=== PATIENT | female | born 1985 | race Caucasian/White ===

== ENCOUNTER 2016-02-14 17:43 | Emergency (ER) | payer MEDICAID ==
[2016-02-14 17:51] VITALS: RESP 18; TEMP 97.9
[2016-02-14] MEDS ORDERED: NS 1,000 ML IV ONE (19:06)
--- NOTE | 2016-02-14 19:06 | EDPHY ---
H & P Stated Complaint: 18 wks preg;cramping low abd x 2 days;no spotting HPI/ROS: HPI CHIEF COMPLAINT: Pelvic cramping HISTORY OF PRESENT ILLNESS: This patient is a 31-year-old female, denies any significant medical history or surgical history she presents to the emergency room with lower pelvic cramping x2 days. No vaginal bleeding, no vaginal discharge, no back pain, no urinary symptoms. She tells me that the pain is going on progressively for 2 days. Denies any vomiting fever back pain. She states she has low pelvic cramping it waxes and waning she is not tender in her right lower quadrant. She denies fever, denies urinary symptoms. She tells me she is 18 weeks . She has had cramping in her pelvis on and off for months. this is her 4th she has 3 living children. Past Medical History: Denies significant medical history Past Surgical History: denies significant surgical history Social History: denies drugs, alcohol, tobacco products Family History: noncontributory ROS REVIEW OF SYSTEMS: A comprehensive 10 point review of systems is otherwise negative aside from elements mentioned in the history of present illness. Exam Constitutional triage nursing summary reviewed, vital signs reviewed, awake/ alert. Eyes normal conjunctivae and sclera, EOMI, PERRLA. HENT normal inspection, atraumatic, moist mucus membranes, no epistaxis, neck supple/ no meningismus, no raccoon eyes. Respiratory clear to auscultation bilaterally, normal breath sounds, no respiratory distress, no wheezing. Cardiovascular rate normal, regular rhythm, no murmur, no edema, distal pulses normal. Gastrointestinal soft, non-tender, no rebound, no guarding, normal bowel sounds, no distension, no pulsatile mass. Genitourinary no CVA tenderness. Musculoskeletal no midline vertebral tenderness, full range of motion, no calf swelling, no tenderness of extremities, no meningismus, good pulses, neurovascularly intact. Skin pink, warm, & dry, no rash, skin atraumatic. Neurologic awake, alert and oriented x 3, AAOx3, moves all 4 extremities equally, motor intact, sensory intact, CN II-XII intact, normal cerebellar, normal vision, normal speech. Psychiatric normal mood/affect. Heme/Lymph/Immune no lymphadenopathy. Differential Diagnosis: includes but is not limited to in a particular order, cramping in , urinary tract infection, electrolyte abnormality, dehydration, ectopic , placental abruption Medical Decision Making: this patient had an ultrasound in a of her pelvis, she has no right lower quadrant pain doubt this is acute appendicitis, her cramp is consistent with previous episodes of cramping during her which have been multiple. Will check blood work, urinalysis, electrolytes she will be hydrated with IV fluids. Re-evaluation: Ultrasound of the Pelvis. The results of the study are normal appearing fetus, normal heart rate, there is a choroid plexus cyst solid in nature that will need follow-up. This has been relayed to the patient I discussed the results of this study with the radiologist Dr. Mcclain [id number]: Re-examination at this time patient is resting comfortably no ongoing abdominal pain specifically in over right lower quadrant pain. Urinalysis blood work reviewed no significant high white blood cell count or any focal pain in the right lower quadrant causing pain. Ultrasound has been reviewed with her she understands this cyst on her cord plexus need follow-up. Normal IUP. No free fluid in the pelvis. Patient is comfortable being discharged home. I did give her strict return precautions understands return emergency room if she develops any worsening symptoms includes abdominal pain, fever, vomiting Source: Patient - Personal History LMP (Females 10-55): EDC: 07/14/16 Current Tetanus Diphtheria and Acellular Pertussis (TDAP): Yes - Medical/Surgical History Hx Asthma: No Hx Chronic Respiratory Disease: No Hx Diabetes: No Hx Cardiac Disease: No Hx Renal Disease: No Hx Cirrhosis: No Hx Alcoholism: No Hx HIV/AIDS: No Hx Splenectomy or Spleen Trauma: No Other PMH: herpes, hpv, depression, ocd/paranoia. - Social History Smoking Status: Never smoked Constitutional: Initial Vital Signs Temperature (C) 36.6 C 02/14/16 17:45 Heart Rate 74 02/14/16 17:45 Respiratory Rate 18 02/14/16 17:45 Blood Pressure 107/78 02/14/16 17:45 O2 Sat (%) 97 02/14/16 17:45 O2 Delivery Mode Room Air Allergies/Adverse Reactions: ginseng Allergy (Verified 02/14/16 17:48) chlorine Allergy (Uncoded 12/15/15 21:37) medicine to stop contractions Allergy (Uncoded 12/15/15 21:37) vitamin B12 Allergy (Uncoded 12/15/15 21:37) Home Medications: Medication Instructions Recorded Vit27&Calcium/Iron/FA 1 each PO 02/14/16 [] Medical Decision Making - Data Points Laboratory Results: Laboratory Results 02/14/16 19:25 02/14/16 19:25 02/14/16 02/14/16 19:25 18:40 WBC 7.99 10^3/uL (3.80-9.50) RBC 4.45 10^6/uL (4.18-5.33) Hgb 13.6 g/dL (12.6-16.3) Hct 39.1 % (38.0-47.0) MCV 87.9 fL (81.5-99.8) MCH 30.6 pg (27.9-34.1) MCHC 34.8 g/dL (32.4-36.7) RDW 14.1 % (11.5-15.2) Plt Count 299 10^3/uL (150-400) MPV 9.6 fL (8.7-11.7) Neut % (Auto) 67.8 % (39.3-74.2) Lymph % (Auto) 22.3 % (15.0-45.0) [place] % (Auto) 7.6 % (4.5-13.0) Eos % (Auto) 1.3 % (0.6-7.6) Baso % (Auto) 0.4 % (0.3-1.7) Nucleat RBC Rel Count 0.0 % (0.0-0.2) Absolute Neuts (auto) 5.42 10^3/uL (1.70-6.50) Absolute Lymphs (auto) 1.78 10^3/uL (1.00-3.00) Absolute Monos (auto) 0.61 10^3/uL (0.30-0.80) Absolute Eos (auto) 0.10 10^3/uL (0.03-0.40) Absolute Basos (auto) 0.03 10^3/uL (0.02-0.10) Absolute Nucleated RBC 0.00 10^3/uL (0-0.01) Immature Gran % 0.6 % (0.0-1.1) Immature Gran # 0.05 10^3/uL (0.00-0.10) Sodium 137 mEq/L (134-144) Potassium 3.6 mEq/L (3.5-5.2) Chloride 102 mEq/L (97-110) Carbon Dioxide 22 mEq/l (22-31) Anion Gap 13 mEq/L (8-16) BUN 5 L mg/dL (7-23) Creatinine 0.5 L mg/dL (0.6-1.0) Estimated GFR > 60 Glucose 78 mg/dL (70-100) Calcium 9.3 mg/dL (8.5-10.4) Total Bilirubin 0.5 mg/dL (0.1-1.4) Conjugated Bilirubin 0.5 mg/dL (0.0-0.5) Unconjugated Bilirubin 0.0 mg/dL (0.0-1.1) AST 22 IU/L (14-46) ALT 34 IU/L (9-52) Alkaline Phosphatase 116 IU/L (38-126) Total Protein 7.3 g/dL (6.3-8.2) Albumin 3.9 g/dL (3.5-5.0) Lipase 300.0 IU/L (23-300) Urine Color YELLOW Urine Appearance CLEAR Urine pH 6.0 (5.0-7.5) Ur Specific [place] 1.013 (1.002-1.030) Urine Protein NEGATIVE (NEGATIVE) Urine Ketones NEGATIVE (NEGATIVE) Urine Blood NEGATIVE (NEGATIVE) Urine Nitrate NEGATIVE (NEGATIVE) Urine Bilirubin NEGATIVE (NEGATIVE) Urine Urobilinogen NEGATIVE EU (0.2-1.0) Ur Leukocyte Esterase NEGATIVE (NEGATIVE) Ur Culture Indicated? NOT INDICATED (NI) Urine Glucose NEGATIVE (NEGATIVE) Medications Given: Discontinued Medications Sodium Chloride (Ns) 1,000 mls @ 0 mls/hr IV ONCE ONE PRN Reason: Wide Open Stop: 02/14/16 19:07 Last Admin: 02/14/16 19:29 Dose: 1,000 mls Departure - Departure Disposition: Home, Routine, Self-Care Clinical Impression: Pelvic cramping Condition: Good Instructions: (ED) Additional Instructions: 1. please return to the emergency room if he develops any worsening symptoms includes abdominal pain, fever, vomiting or questions or concerns. 2. Please follow up with your ultrasound results with her OBGYN.
[2016-02-14 19:36] LABS: % IMMATURE GRANULYOCYTES 0.6 % (0.0-1.1); ABSOLUTE IMMATURE GRANULOCYTES 0.05 10^3/uL (0.00-0.10); ADD DIFF? NO; ADD MORPH? NO; ADD SCAN? NO; ATYPICAL LYMPHOCYTE FLAG 10 (0-99); FRAGMENT RBC FLAG 0 (0-99); HEMATOCRIT 39.1 % (38.0-47.0); HEMOGLOBIN 13.6 g/dL (12.6-16.3); LEFT SHIFT FLG 0 (0-99); LIPEMIA HEMOLYSIS FLAG 90 (0-99); MEAN CELL HEMOGLOBIN 30.6 pg (27.9-34.1); MEAN CELL HEMOGLOBIN CONCENTR. 34.8 g/dL (32.4-36.7); MEAN CELL VOLUME 87.9 fL (81.5-99.8); MEAN PLATELET VOLUME 9.6 fL (8.7-11.7); PLATELET CLUMPS FLAG 0 (0-99); PLATELET COUNT 299 10^3/uL (150-400); RED BLOOD CELL COUNT 4.45 10^6/uL (4.18-5.33); RED CELL DISTRIBUTION WIDTH 14.1 % (11.5-15.2)
[2016-02-14 19:38] LABS: COLOR YELLOW; LEUKOCYTE ESTERASE,URINE NEGATIVE (NEGATIVE); NITRITE,URINE NEGATIVE (NEGATIVE)
[2016-02-14 19:51] LABS: ALANINE AMINOTRANSFERASE 34 IU/L (9-52); ALBUMIN 3.9 g/dL (3.5-5.0); ALKALINE PHOSPHATASE 116 IU/L (38-126); ANION GAP 13 mEq/L (8-16); ASPARTATE AMINOTRANSFERASE 22 IU/L (14-46); BILIRUBIN,TOTAL 0.5 mg/dL (0.1-1.4); BILIRUBIN-CONJUGATED 0.5 mg/dL (0.0-0.5); CALCIUM 9.3 mg/dL (8.5-10.4); CARBON DIOXIDE 22 mEq/l (22-31); CHLORIDE 102 mEq/L (97-110); CREATININE 0.5 mg/dL (0.6-1.0); GLOMERULAR FILTRATION RATE > 60; GLUCOSE 78 mg/dL (70-100); POTASSIUM 3.6 mEq/L (3.5-5.2); SODIUM 137 mEq/L (134-144); TOTAL PROTEIN 7.3 g/dL (6.3-8.2)
--- NOTE | 2016-02-14 21:22 | US ---
Complete Obstetric Ultrasound - February 14, 2016 Indication: Pelvic pain. The estimated gestational age by LMP is 18 weeks and 3 days, yielding an EDC of July 14, 2016. Comparison: First symmetric obstetrical ultrasound of December 15, 2015. Findings: Number: 1 Presentation: Vertex Placental location: Posterior. No previa or retroplacental fluid collection. Placenta cord insertion: Central Cervix: 3.7 cm, visualized transabdominally Maximum vertical pocket: 4.9 cm. Amniotic fluid index: 15.6 cm heart rate: 147 bpm Ovaries: Not visualized. No free fluid or adnexal mass. Biometry: Biparietal diameter: 42 mm = 18 weeks, 6 days Head circumference: 152 mm = 18 weeks, 2 days Abdominal circumference: 127 mm = 18 weeks, 2 days Femur length: 28 mm = 18 weeks, 4 days Humerus length: 28 mm = 18 weeks, 6 days Transcerebellar diameter: 19 mm = 18 weeks, 5 days HC/AC: 1.20 (1.07 - 1.29) FL/BPD: 66% FL/AC: 22% Average ultrasound age: 18 weeks, 4 days EDC based on today's average ultrasound age: July 13, 2016 Estimated weight is 238 grams +/- 35 grams. The estimated weight is at the 43rd percentil e based on previous dating. Anatomy Survey: Supratentorial brain: Bilateral choroid plexus cysts. Otherwise normal anatomy. Posterior fossa: Normal Spine: Suboptimal Nose and lips: Normal Facial profile: Normal Heart: Four-chamber heart. Suboptimal visualization. Cardiac outflow tracts: Not visualized. Stomach: Normal Umbilical cord insertion: Normal Kidneys: Normal, no pyelectasis Bladder: Normal Number of cord vessels: Three Upper extremities: Present Lower extremities: Present Impression: 1. Living chou in vertex presentation. Size is concordant with dates. The estimated ge stational age by biometry is 18 weeks and 4 days, yielding an EDC of July 13, 2016. The estimate d gestational age by LMP is 18 weeks and 3 days. 2. Posterior placenta. No previa or evidence of abruption. 3. Normal amniotic fluid volume. 4. Bilateral choroid plexus cysts may be an isolated benign finding, however, consultation with the [facility] is recommended. 5. Limited normal anatomic survey. Comment: Results and recommendations were discussed with Dr. Kulwant Olson at 8:33 p.m. on February 14, 2016.
[2016-02-14 22:24] VITALS: BP 124/68; PULSE 85; O2SAT 99
== END 2016-02-14 22:24 | disposition home or self-care (01) ==
DX: O26.892 Other specified pregnancy related conditions, second trimester (principal); R10.2 Pelvic and perineal pain; Z3A.18 18 weeks gestation of pregnancy

== ENCOUNTER → 2016-03-12 | Outpatient (CLI) | payer MEDICAID ==
--- NOTE | 2016-03-12 11:31 | US ---
March 12, [address] Beasley, Thank you for requesting consultation and a ultrasound to evaluate anatomy for your patient, Ms. Marie. As you know, David is a 31 year old G 4, P 3003 with a chou pregna ncy dating 22 w 2 d; JAVY of 07/14/16 by 9 week ultrasound. Aneuploidy screening was performed. She had a reassuring Quad screen. Her anatomy ultrasound for this revealed choroid plexus cyst s. She is here with her advocate today. She has had three successful term vaginal deliveries. ULTRASOUND Number of fetuses: 1 Placental location: Anterior; no evidence of previa Placental cord insertion: Intraplacental presentation: Cephalic Cervix: 4.3 cm viewed transabdominally Maximum Vertical Pocket: 5.3 cm The adnexa were evaluated. No pathology was seen. Right ovary is visualized and seen as normal. It measures 1.6 x 1.2 x 1.9 cm. Left ovary is visualized and seen as normal. It measures 1.6 x 1.1 x 1.8 cm. MEASUREMENTS: Biparietal diameter: 52 mm 21 weeks, 5 days Head circumference: 197 mm 22 weeks, 0 days Abdominal circumference: 180 mm 23 weeks, 0 days Femur length: 40 mm 23 weeks, 1 days Humerus length: 37 mm 23 weeks, 0 days Transcerebellar diameter: 23 mm 21 weeks, 4 days Average ultrasound age: 22 weeks, 4 days Estimated weight: 535 gm weight percentile: 70% ANATOMY Supratentorial brain: Normal including views of the falx, cavum septum pellucidum and choroids Lateral Ventricle: Normal, measuring 7.7 mm Posterior fossa: Normal including the cerebellum and cisterna magna Spine: Normal Nuchal fold: 5.1 mm normal Face: Normal views of the lip and nose area Profile: Normal Palate: Normal appearance of the alveolar ridge Heart: Four Chamber View: Normal including the intraventricular Septum LVOT: Normal RVOT: Normal 3VV: Normal Tracheal View: Normal Aortic Arch: Seen Ductal Arch: Seen SVC/IVC: Seen Heart Rate 147 bpm Diaphragm: Normal appearance without overt abnormality detected Stomach: Normal Umbilical cord insertion: Normal Right kidney: Normal Left kidney: Normal Bladder: Normal Number of cord vessels: Three Upper extremities: Normal Lower extremities: Normal Gender: Female IMPRESSION: 1. Intrauterine at 22 w 2 d, ultrasound is consistent with her established JAVY of 07/14/16 . 2. Normal anatomical survey. Resolution of previously seen choroid plexus cysts. 3. Cervical length is normal at 4.3 cm without evidence of insufficiency. RECOMMENDATIONS: I was pleased to review today's ultrasound with your patient, David. I reassured her that the baby is growing appropriately with normal amniotic fluid volume. Our detailed review of the anatomy did not reveal any overt abnormalities. We discussed the relevance of CPCs on ultrasound, spe cifically if other abnormalities were noted or her aneuploidy screening were concerning for Trisomy 1 8. In isolation, they are a variant and very unlikely related to aneuploidy. She is aware that she could choose to pursue definitive genetic diagnosis by amniocentesis. After our conversation, she wa s happy with the information she received and declined further testing. Future ultrasound and consultation is left to your clinical discretion. Thank you for allowing us the opportunity to evaluate your patient. Should you have any further ques tions or concerns please do not hesitate to contact me. Approximately 30 minutes were spent with the patient and 20 minutes were spent in face to face consu ltation. Oneida Pollock MD [employer] Maternal Medicine Diagnosis Department of Obstetrics & Gynecology [facility]
--- NOTE | 2016-03-12 15:20 | US ---
Obstetrical Sonogram Detail Clinical Indications: Advanced maternal age. Follow-up choroid plexus cysts; evaluate growth and dev elopment. Comparison to the prior study February 12, 2016. Technique: Longitudinal and transverse images are obtained. Dr. Pollock was present for the examination . Color Doppler evaluation is employed for assessment of vascularity. Findings: A single fetus is present in vertex presentation. Maternal cervical length is estimated at 4.3 cm. T he amount of amniotic fluid is normal with an MVP of 5.3 cm. The placenta is located anterior with no placenta previa. A three-vessel cord is documented with a central insertion on the placenta. motion is identified. cardiac activity is documented with a heart rate estimated at 147 beats per minute. A four-chamber heart view as well as out flow tract views are obtained. stoma ch, kidneys and bladder are normal. supratentorial brain, posterior fossa and neural axis appea rs normal. There has been interval resolution of the previously seen choroid plexus cysts. No a bnormality is identified. Maternal ovaries are visualized and appear normal. biometry: Biparietal diameter = 52 mm = 21 weeks 5 days Head circumference = 197 mm = 22 weeks 0 days Abdominal circumference = 180 mm = 23 weeks 0 days Femur length = 40 mm = 23 weeks 1 day Estimated weight 535 +/- 78 grams. This is at the 70th percentile based on last menstrual perio d. The estimated delivery date by ultrasound is July 12, 2016. This compares to the clinical date of July 14, 2016. Impression: 1. Single live intrauterine gestation with estimated age by ultrasound of 22 weeks 4 days with an est imated delivery date of July 12, 2016 by ultrasound.. 2. Appropriate interval development with resolution of previously seen choroid plexus cysts. Please see Dr. Pollock's report for findings and recommendations.
== END ==
LOC: FIMAGING 09:44
PROVIDERS: ATTEND Family Medicine
DX: Z36 Encounter for antenatal screening of mother (principal); Z3A.22 22 weeks gestation of pregnancy

== ENCOUNTER 2016-06-24 21:55 | Observation (INO) | payer MEDICAID ==
--- NOTE | 2016-06-24 23:42 | OBPROG ---
OBG Progress Note Assessment/Plan: Assessment: at 37w2d, no e/o ROM based on no e/o leakage of fluid, neg nitrazine, normal DVP Hemodynamically stable status reassuring Not in labor GBS pos Plan: Discharge home with strict precautions to return if notices further LOF Follow-up as scheduled for routine visit on Saturday. 06/24/16 23:45 06/24/16 23:47 Subjective: Patient is a healthy 31 yo at 37w2d by her stated JAVY, [facility] [place], here for r/o ROM. She states she had some diarrhea yesterday with nausea, improved but then occurred again today. Then after having diarrhea she had to urinate quite a few times in a row, and it alternated between clear and yellow urine, so she was unsure if it was amniotic fluid. She denies leaking at this time. No VB. No ctx. Active baby. Was 2 cm in the office 2 weeks ago. Next visit on Saturday. Also having some increased fatigue and headaches. Preg c/b GBS positive, anemia (Hct = 31), learning disability (IQ = 65) on disability, h/o depression, HSV on acyclovir All labs reviewed, notable for Rh neg, she states she has received Rhogam Objective: BP 121/65, pulse = 85, temp = 36.8 Gen: NAD Resp: unlabored CV: RRR Abd: gravid, soft, nontender, c/w stated dates Ext: no edema No moistness in pad or on perineum, including with cough Nitrazine negative SVE (done by Padma PASCUAL) 2/50/high, no leakage of fluid Sneads: few contractions, palpate mild, not felt by patient Bedside TAUS: Vertex fetus. Normal fluid with DVP = 6.6 cm FHR (bpm): 120 FHR Pattern Variability: Moderate FHR Category: 1 Membranes: Intact ICD10 Worksheet Patient Problems: Problems Problem Status Onset Acute - ICD10 Problem Qualifiers (1) Qualifiers: Weeks of gestation: 37 weeks Qualified Code(s): Z3A.37 - 37 weeks gestation of
== END 2016-06-24 23:38 | disposition home or self-care (01) ==
LOC: FLD 21:55
PROVIDERS: ADMIT Obstetrics & Gynecology; ATTEND Obstetrics & Gynecology
DX: Z03.79 Encounter for other suspected maternal and fetal conditions ruled out (principal); Z3A.37 37 weeks gestation of pregnancy

== ENCOUNTER 2016-07-06 05:15 | Inpatient (IN) | payer MEDICAID ==
[2016-07-06] MEDS ORDERED: TERBUTALINE SULFATE 1 MG/ML VIAL IV PRN (05:53)
[2016-07-06] MEDS ORDERED: AMPICILLIN SODIUM 2 GM in NS 100 ML IV ONE (05:53)
[2016-07-06] MEDS ORDERED: OXYTOCIN/RINGERS LACTATE 1,000 ML IV PRN (05:53)
[2016-07-06] MEDS ORDERED: EPSOM SALT 454 GM TP PRN (05:53)
[2016-07-06] MEDS ORDERED: OLIVE OIL 118 ML BTL MISC PRN (05:53)
[2016-07-06] MEDS ORDERED: LR 1,000 ML IV PRN (05:53)
[2016-07-06] MEDS ORDERED: fentaNYL 2MCG/ML/BUP 0.1% RTU 100 ML BAG EP ONE (06:07)
[2016-07-06] MEDS ORDERED: PHENYLEPHRINE HCL 100 MCG/ML SYR ONE (06:08)
[2016-07-06] MEDS ORDERED: BUPIVACAINE 0.25% 30 ML SDV ONE (06:08)
[2016-07-06 06:09] LABS: % IMMATURE GRANULYOCYTES 0.6 % (0.0-1.1); ABSOLUTE IMMATURE GRANULOCYTES 0.06 10^3/uL (0.00-0.10); ADD DIFF? NO; ADD MORPH? NO; ADD SCAN? NO; ATYPICAL LYMPHOCYTE FLAG 10 (0-99); FRAGMENT RBC FLAG 0 (0-99); HEMATOCRIT 41.7 % (38.0-47.0); LEFT SHIFT FLG 0 (0-99); LIPEMIA HEMOLYSIS FLAG 80 (0-99); MEAN CELL HEMOGLOBIN CONCENTR. 33.6 g/dL (32.4-36.7); MEAN CELL VOLUME 86.5 fL (81.5-99.8); MEAN PLATELET VOLUME 10.3 fL (8.7-11.7); PLATELET CLUMPS FLAG 0 (0-99); PLATELET COUNT 251 10^3/uL (150-400); RED BLOOD CELL COUNT 4.82 10^6/uL (4.18-5.33); RED CELL DISTRIBUTION WIDTH 14.8 % (11.5-15.2)
[2016-07-06] MEDS ORDERED: fentaNYL 100 MCG/2 ML INJ ONE (06:09)
[2016-07-06] MEDS ORDERED: HYDROCODONE/APAP 5/325 TAB PO PRN (06:50)
[2016-07-06] MEDS ORDERED: HYDROCORTISONE 0.5% CREAM TP PRN (06:50)
[2016-07-06] MEDS ORDERED: SIMETHICONE 80 MG TAB CHEW PO PRN (06:50)
--- NOTE | 2016-07-06 06:53 | OBPROC ---
- Labor and Delivery Onset of Contractions Date: 07/06/16 Onset of Contractions Time: 03:30 Onset of Contractions Type: Spontaneous Rupture of Membranes Date: 07/06/16 Rupture of Membranes Time: : Rupture of Membranes Type: Artificial Amniotic Fluid Color: Clear Dilation Complete Time: 06:15 Delivery Type: Spontaneous Placenta Delivery Date: 07/06/16 Repair: 3-0, Vicryl EBL: 200 ml Complications: None - Medications Labor Augmentation/Induction Meds Used: None Anesthesia: Other (Specify) (nitrous oxide) - [place] Info Infant A Delivery Date: 07/06/16 Delivery Time: 06:31 Sex of Infant: Female Score (1 Min): 8 Score (5 Min): 9
--- NOTE | 2016-07-06 07:15 | GHP ---
[f rep st] PREOP HISTORY AND PHYSICAL DATE OF ADMISSION: 07/06/2016 CHIEF COMPLAINT: Labor. HISTORY OF PRESENT ILLNESS: The patient is a 31-year-old, G4, P3 female who at 39-0/7 weeks gestation dated by a 9-week ultrasound presents with complaints of painful contractions every 2 minutes. On examination on arrival to labor and delivery, she was 10 cm dilated. PAST MEDICAL HISTORY: Significant for history of depression, PTSD. Has been on Prozac in the past, also a history of genital herpes. PAST SURGICAL HISTORY: History of a LEEP. GYNECOLOGICAL HISTORY: History of HSV and herpes. OBSTETRICAL HISTORY: Three previous NSVDs. REVIEW OF SYSTEMS: Positive for painful contractions. PHYSICAL EXAMINATION: She is uncomfortable. As stated, she is completely dilated and has a bulging bag of water. heart tones are in the 120s with moderate variability. LABORATORY DATA: Significant for AB-, antibody screen negative. Rubella immune. RPR nonreactive. Hepatitis B surface antigen negative, HIV negative, gonorrhea and chlamydia negative. 1-hour Glucola is 92, and as stated, GBS positive. ASSESSMENT AND PLAN: This is a 31-year-old, 4, para 3 female who is at 39-0/7 weeks gestation in active labor. Expect imminent delivery. GBS is positive. She is going to get 1 dose of ampicillin and Rh-negative. Will test baby's blood type and give RhoGAM as needed after delivery. /[id number]/MODL MTDD
[2016-07-06] MEDS: IBUPROFEN 600 MG TAB PO PRN ×3 (07:30→19:14)
[2016-07-06] MEDS ORDERED: AMPICILLIN SODIUM 1 GM in NS 100 ML IV SCH (09:54)
[2016-07-06] MEDS: DOCUSATE SODIUM 100 MG CAP PO PRN (20:31)
[2016-07-07] MEDS: IBUPROFEN 600 MG TAB PO PRN ×3 (01:20→14:48)
[2016-07-07] MEDS: DOCUSATE SODIUM 100 MG CAP PO PRN (08:43)
--- NOTE | 2016-07-07 09:19 | SOAPPROG ---
SOAP Progress Note Assessment/Plan: Assessment: PPD#1 s/p precipitous delivery GBS pos s/p 1 dose abx Desires PPTL Rh neg Plan: Stay until PPD#2 for obs for baby Start pumping as she has not has success with latching and doesn't want to continue to try but would like to express breastmilk Reviewed options for PPTL today in hospital if we are able to obtain papers, vs interval salpingectomy at 6 weeks. She states she doesn't have a partner at this time and prefers to wait until 6 weeks so she doesn't feel sore now. She declines DMPA for bridging. s/p Rhogam She already has appt scheduled on July 13 with her [employer] Operator, encouraged her to keep this visit for follow-up and to coordinate tubal ligation 07/07/16 09:16 Subjective: Feels well. Baby not latching, she wants to try pumping. No significant bleeding. She had planned tubal ligation after delivery but doesn't have copies of paperwork with her, wants to discuss options. Objective: Vital Signs Temp Pulse Resp BP Pulse Ox 35.9 C L 55 L 16 115/71 98 07/06/16 20:00 07/06/16 20:00 07/06/16 20:00 07/06/16 20:00 07/06/16 20:00 Laboratory Results 07/07/16 05:50 07/06/16 07/07/16 07/08/16 05:59 05:59 05:59 Output Total 300 Balance -300 Gen: NAD, alert, awake Resp: unlabored CV: RRR Abd: soft,nontender, uterus firm below U Ext: no edema ICD10 Worksheet Patient Problems: Problems Problem Status Onset Labor established Acute Acute
[2016-07-07 09:28] VITALS: RESP 18
[2016-07-08] MEDS: IBUPROFEN 600 MG TAB PO PRN ×3 (00:27→15:22)
[2016-07-08] MEDS: DOCUSATE SODIUM 100 MG CAP PO PRN (07:50)
--- NOTE | 2016-07-08 08:33 | SOAPPROG ---
SOAP Progress Note Assessment/Plan: Assessment: 31 yo s/p , ppd 2, doing well. Plan: 07/08/16 08:32 Rh neg, s/p rhogam. rubella immune. Home today, f/u primary ob provider. Subjective: 31 yo s/p , ppd 2, doing well. Objective: Vital Signs Temp Pulse Resp BP Pulse Ox 36.6 C 78 18 115/70 95 07/07/16 20:00 07/07/16 20:00 07/07/16 20:00 07/07/16 20:00 07/07/16 20:00 Laboratory Results 07/07/16 05:50 07/07/16 07/08/16 07/09/16 05:59 05:59 05:59 Output Total 300 Balance -300 Physical Exam - Physical Exam General Appearance: no apparent distress Respiratory: lungs clear Cardiac/Chest: regular rate, rhythm Abdomen: non-tender Skin: warm/dry Extremities: non-tender Neuro/Psych: oriented x 3 ICD10 Worksheet Patient Problems: Problems Problem Status Onset Labor established Acute Acute
[2016-07-08 10:00] VITALS: BP 111/67; PULSE 74; TEMP 98.3; O2SAT 97
== END 2016-07-08 15:45 | disposition home or self-care (01) | DRG 775 ==
LOC: OBSVTOIN 05:15 → FLD 05:15 → FOB 09:38
PROVIDERS: ADMIT Obstetrics & Gynecology; ATTEND Obstetrics & Gynecology
PROC: 10907ZC Drainage of Amniotic Fluid, Therapeutic from Products of Conception, Via Natural or Artificial Opening (ICD-10-PCS; principal; 2016-07-06)
PROC: 0KQM0ZZ Repair Perineum Muscle, Open Approach (ICD-10-PCS; principal; 2016-07-06)
PROC: 3E0234Z Introduction of Serum, Toxoid and Vaccine into Muscle, Percutaneous Approach (ICD-10-PCS; principal; 2016-07-06)
PROC: 10E0XZZ Delivery of Products of Conception, External Approach (ICD-10-PCS; principal; 2016-07-06)
DX: O70.1 Second degree perineal laceration during delivery (principal); O62.3 Precipitate labor; O99.820 Streptococcus B carrier state complicating pregnancy; O26.893 Other specified pregnancy related conditions, third trimester; Z67.91 Unspecified blood type, Rh negative; Z3A.39 39 weeks gestation of pregnancy; Z37.0 Single live birth
CPT/HCPCS: J0290; J2370; J2590; J3010

== ENCOUNTER 2017-02-24 14:43 | Emergency (ER) | payer MEDICAID ==
[2017-02-24 14:50] VITALS: BP 117/78; PULSE 77; RESP 16; TEMP 98.2; O2SAT 97
--- NOTE | 2017-02-24 16:12 | EDPHY ---
H & P Time Seen by Provider: 02/24/17 15:53 HPI/ROS: COMPLAINT: Sinus congestion, cough HISTORY OF PRESENT ILLNESS: The patient is a 32 y/o female arriving with her daughters complaining of congestion, rhinorrhea, headache, and cough, onset 1 week ago. She first developed rhinorrhea, followed by congestion, then headache and cough. Cough productive of greenish phlegm. She has associated generalized weakness and fatigue. Starting to feel better today. She denies fever, abdominal pain, diarrhea, ear pain, or any other associated symptoms. She denies history of asthma or any other pulmonary condition. REVIEW OF SYSTEMS: A 10 point review of systems was performed and is negative with the exception of the elements mentioned in the history of present illness. Past Medical/Surgical History: Denies Social History: Daughters at bedside, lives in [place], PCP: Dr. Beasley Smoking Status: Never smoked Physical Exam: General Appearance: Alert, pleasant, non-toxic appearing Eyes: Pupils equal and round, no conjunctival pallor or injection ENT, Mouth: Mucous membranes moist, pharyngeal erythema Neck: Normal inspection Respiratory: Lungs are clear to auscultation, no wheezing Cardiovascular: Regular rate and rhythm Neurological: A&O, nonfocal exam Skin: Warm and dry, no rash Extremities: normal inspection Psychiatric: Mood and affect normal Constitutional: Initial Vital Signs Temperature (C) 36.8 C 02/24/17 14:47 Heart Rate 77 02/24/17 14:47 Respiratory Rate 16 02/24/17 14:47 Blood Pressure 117/78 02/24/17 14:47 O2 Sat (%) 97 02/24/17 14:47 O2 Delivery Mode Room Air Allergies/Adverse Reactions: No Known Allergies Allergy (Unverified 07/06/16 07:15) Home Medications: Medication Instructions Recorded Vit27&Calcium/Iron/FA 1 each PO BID 02/14/16 [] Iron 1 tab PO BID 06/24/16 Hydrocodone/APAP 5/325 [Amanda 1 - 2 tab PO Q4HRS PRN #10 tab 07/08/16 5/325 (*)] Ibuprofen [Motrin (*)] 600 mg PO Q6HRS PRN #60 tab 07/08/16 Medical Decision Making ED Course/Re-evaluation: The patient presents with URI sx. Influenza swab sent, given multiple ill contacts in home, including . She will call back for influenza results as she is outside of the window for Tamiflu. I discussed this with the patient. She agrees to this course of action. Instructions given. Departure - Departure Disposition: Home, Routine, Self-Care Clinical Impression: Upper respiratory infection Qualifiers: URI type: unspecified viral URI Qualified Code(s): J06.9 - Acute upper respiratory infection, unspecified Condition: Good Instructions: Upper Respiratory Infection (ED) Additional Instructions: 1. Call back later this evening for the results of your flu test. 2. Take Delsym as needed for cough. Take 400 mg ibuprofen as directed as needed for pain. Continue to consume lots of fluid and rest. 3. Return to the ED for any worsening of condition. Referrals: Yue Beasley MD [Primary Care Provider] - As per Instructions Report Scribed for: Suzie Davis Report Scribed by: Muriel Sanford Date of Report: 02/24/17 Time of Report: 16:12 Physician Review and Approval Statement: 02/24/17 16:12 Portions of this note were transcribed by a medical secretary teacher. I personally performed a history, physical exam, medical decision making, and confirmed accuracy of information the transcribed note.
== END 2017-02-24 16:24 | disposition home or self-care (01) ==
DX: J06.9 Acute upper respiratory infection, unspecified (principal)

== ENCOUNTER 2017-10-15 17:09 | Emergency (ER) | payer MEDICAID ==
[2017-10-15 17:26] VITALS: BP 133/90
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
== END 2017-10-15 18:18 | disposition home or self-care (01) ==
DX: S92.425A Nondisplaced fracture of distal phalanx of left great toe, initial encounter for closed fracture (principal); W01.0XXA Fall on same level from slipping, tripping and stumbling without subsequent striking against object, initial encounter; Y99.9 Unspecified external cause status

== ENCOUNTER 2017-10-29 19:56 | Emergency (ER) | payer MEDICAID ==
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
[2017-10-29 21:38] LABS: PLATELET COUNT 298 10^3/uL (150-400)
[2017-10-29] MEDS ORDERED: DOXYCYCLINE HYCLATE 100 MG CAP/TAB PO ONE (22:58)
[2017-10-29 23:29] VITALS: BP 123/82
[2017-10-30 11:16] LABS: GC AMPLIFICATION GENPROBE NEGATIVE (NEGATIVE)
== END 2017-10-29 23:48 | disposition home or self-care (01) ==
DX: N73.9 Female pelvic inflammatory disease, unspecified (principal)
CPT/HCPCS: J0696

== ENCOUNTER 2018-04-03 17:24 | Emergency (ER) | payer MEDICAID ==
[2018-04-03 17:29] VITALS: BP 133/92
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
== END 2018-04-03 17:57 | disposition home or self-care (01) ==
PROC: 3E0X3BZ Introduction of Anesthetic Agent into Cranial Nerves, Percutaneous Approach (ICD-10-PCS; principal; 2018-04-03)
DX: K08.89 Other specified disorders of teeth and supporting structures (principal); Z3A.08 8 weeks gestation of pregnancy

== ENCOUNTER 2018-04-09 16:37 | Emergency (ER) | payer MEDICAID ==
[2018-04-09] MEDS ORDERED: ONDANSETRON 4 MG/2 ML VIAL ONE (17:10)
[2018-04-09] MEDS ORDERED: ONDANSETRON 4 MG/2 ML VIAL IVP ONE (17:10)
[2018-04-09] MEDS ORDERED: NS 1,000 ML IV ONE (17:10)
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
[2018-04-09 17:27] LABS: PLATELET COUNT 320 10^3/uL (150-400)
[2018-04-09 18:25] VITALS: BP 107/79
== END 2018-04-09 18:25 | disposition home or self-care (01) ==
DX: O26.891 Other specified pregnancy related conditions, first trimester (principal); O99.281 Endocrine, nutritional and metabolic diseases complicating pregnancy, first trimester; Z3A.08 8 weeks gestation of pregnancy
CPT/HCPCS: 96374; J2405

== ENCOUNTER 2018-07-07 01:53 | Emergency (ER) | payer MEDICAID | END 2018-07-07 04:41 | disposition home or self-care (01) ==

== ENCOUNTER → 2018-07-22 | Outpatient (CLI) | payer MEDICAID | LOC: FIMAGING 12:06 ==

== ENCOUNTER 2018-07-26 19:30 | Observation (INO) | payer MEDICAID | END 2018-07-26 21:27 | disposition home or self-care (01) | LOC: FLD 19:30 ==